=== PATIENT | female | born 1985 | race Caucasian/White ===

== ENCOUNTER 2017-10-06 15:57 | Emergency (ER) | payer MEDICAID ==
[~2017-10-06] VITALS: Ht 170.2 cm; Wt 59.9 kg
[2017-10-06 16:00] VITALS: BP_SYST 129
[2017-10-06] MEDS ORDERED: MORPHINE SULFATE 10 MG/ML VIAL IM ONE (19:00)
[2017-10-06] MEDS ORDERED: IBUPROFEN 800 MG TABLET PO ONE (19:00)
[2017-10-06 19:55] VITALS: BP_SYST 129
== END 2017-10-06 19:55 | disposition home or self-care (01) ==
LOC: SED 15:57
DX: S62.001A Unspecified fracture of navicular [scaphoid] bone of right wrist, initial encounter for closed fracture (principal); E11.9 Type 2 diabetes mellitus without complications; R03.0 Elevated blood-pressure reading, without diagnosis of hypertension; W01.198A Fall on same level from slipping, tripping and stumbling with subsequent striking against other object, initial encounter; Y93.89 Activity, other specified; Y92.89 Other specified places as the place of occurrence of the external cause; Y99.8 Other external cause status
CPT/HCPCS: 29125; 73090; 73110; 73140; 81025; 96372; 99284; J2270

== ENCOUNTER 2018-03-07 16:10 | Inpatient (IN) | payer MEDICAID, OTHER ==
[~2018-03-07] VITALS: Ht 170.2 cm; Wt 61.7 kg
[2018-03-07 16:10] VITALS: BP_SYST 157
[2018-03-07] MEDS ORDERED: NACL 0.9% 1,000 ML IV ONE (16:31)
[2018-03-07 17:00] LABS: BASOPHILS % (AUTO) 0.6 % (0.0-2.0); EOSINOPHILS # (AUTO) 0.1 K/uL (0.0-0.4); HEMATOCRIT 38.8 % (36-48); HEMOGLOBIN 13.2 g/dL (12.0-16.0); LYMPHOCYTES # (AUTO) 1.5 K/uL (1.0-5.5); LYMPHOCYTES % (AUTO) 37.4 % (20.5-51.5); MEAN CORPUSCULAR HEMOGLOBIN 34 pg (27-31); MEAN CORPUSCULAR HGB CONC 34 % (32-36); MEAN CORPUSCULAR VOLUME 101 fL (79.0-98.0); MONOCYTES # (AUTO) 0.4 K/uL (0.0-1.0); MONOCYTES % (AUTO) 8.9 % (1.7-9.3); NEUTROPHILS % (AUTO) 50.1 % (40.0-70.0); PLATELET COUNT (AUTO) 271 K/uL (130-430); RED BLOOD CELL COUNT(AUTO) 3.83 MIL/uL (4.2-6.2); RED CELL DISTRIBUTION WIDTH 16.1 % (9.0-15.0)
[2018-03-07] MEDS ORDERED: LORazepam 2 MG/ML VIAL (FOR ER USE) IVP ONE (17:00)
[2018-03-07 17:08] LABS: ACETONE, SERUM NEGATIVE (NEGATIVE)
[2018-03-07 17:09] LABS: ANION GAP 14 (5-15); CALCIUM 8.6 mg/dL (8.4-11.0); CHLORIDE 99 mmol/L (98-107); CREATININE 0.71 mg/dL (0.55-1.30); GLUCOSE 124 mg/dL (70-99); POTASSIUM 3.1 mmol/L (3.5-5.1); SODIUM SERUM 141 mmol/L (136-145); UREA NITROGEN, BLOOD 6 mg/dL (8-21)
[2018-03-07 17:23] LABS: ALANINE AMINOTRANSFERASE 27 U/L (12-78); ALBUMIN 3.8 g/dL (3.4-4.8); ALCOHOL, BLOOD 262 mg/dL (<10); ASPARTATE AMINOTRANSFERASE 77 U/L (10-37); TOTAL BILIRUBIN 0.7 mg/dL (0.0-1.0)
[2018-03-07 17:24] LABS: ACETAMINOPHEN < 1 ug/mL (1-30)
[2018-03-07] MEDS ORDERED: POTASSIUM CHLORIDE 10 MEQ TAB.PRT.SR PO ONE (18:00)
[2018-03-07 18:16] LABS: BARBITURATE, URINE NEGATIVE (NEG <=200); BENZODIAZEPINE, URINE NEGATIVE (NEG <=150); METHAMPHETAMINES SCREEN,URINE NEGATIVE (NEG <=500); URINE AMPHETAMINE NEGATIVE (NEG <=500); URINE METHADONE NEGATIVE (NEG <=200)
[2018-03-07 18:17] LABS: CANNABINOID, URINE POSITIVE (NEG <=50); COCAINE, URINE NEGATIVE (NEG <=150); OPIATE, URINE NEGATIVE (NEG <=100); PHENCYCLIDINE SCREEN,URINE NEGATIVE (NEG <=25); UR TRICYCLIC ANTIDEPRESSANTS NEGATIVE (NEG <=300); URINE OXYCODONE SCREEN NEGATIVE (NEG <=100); URINE PROPOXYPHENE SCREEN NEGATIVE (NEG <=300)
[2018-03-07] MEDS ORDERED: FOLIC ACID 1 MG, THIAMINE HCL 100 MG, MAGNESIUM SULFATE 1 GM, MVI 10 ML in NACL 0.9% 1,... IV SCH (19:45)
[2018-03-07] MEDS ORDERED: THIAMINE HCL 100 MG in NS 50 ML IV ONE (20:00)
[2018-03-07 20:27] VITALS: BP_SYST 113
[2018-03-07] MEDS: POTASSIUM CHLORIDE 20 MEQ TAB.PRT.SR PO SCH (21:09)
[2018-03-07] MEDS: FAMOTIDINE 20 MG TABLET PO SCH (21:09)
[2018-03-07] MEDS: chlordiazePOXIDE HCL 25 MG CAPSULE PO SCH (21:09)
[2018-03-07] MEDS: LORazepam 2 MG/ML VIAL IVP PRN (22:45)
[2018-03-07] MEDS ORDERED: FOLIC ACID 1 MG, THIAMINE HCL 100 MG, MAGNESIUM SULFATE 1 GM, MVI 10 ML in NACL 0.9% 1,... IV ONE (23:00)
[2018-03-07] MEDS ORDERED: THIAMINE HCL 100 MG/ML VIAL ONE (23:23)
[2018-03-07] MEDS ORDERED: MVI 10 ML VIAL IV ONE (23:23)
[2018-03-07] MEDS ORDERED: FOLIC ACID 5 MG/ML VIAL IV ONE (23:23)
[2018-03-07] MEDS ORDERED: MAGNESIUM SULFATE 1 GM/2 ML VIAL ONE (23:23)
[2018-03-08 00:22] VITALS: BP_SYST 123
[2018-03-08] MEDS: LORazepam 2 MG/ML VIAL IVP PRN ×5 (04:10→22:03)
[2018-03-08 07:24] LABS: BASOPHILS % (AUTO) 0.2 % (0.0-2.0); EOSINOPHILS # (AUTO) 0.1 K/uL (0.0-0.4); EOSINOPHILS % (AUTO) 2.5 % (0.0-4.0); HEMATOCRIT 33.5 % (36-48); HEMOGLOBIN 11.3 g/dL (12.0-16.0); LYMPHOCYTES # (AUTO) 1.1 K/uL (1.0-5.5); LYMPHOCYTES % (AUTO) 19.3 % (20.5-51.5); MEAN CORPUSCULAR HEMOGLOBIN 35 pg (27-31); MEAN CORPUSCULAR HGB CONC 34 % (32-36); MEAN CORPUSCULAR VOLUME 103 fL (79.0-98.0); MONOCYTES # (AUTO) 0.3 K/uL (0.0-1.0); MONOCYTES % (AUTO) 6.3 % (1.7-9.3); NEUTROPHILS % (AUTO) 71.7 % (40.0-70.0); PLATELET COUNT (AUTO) 191 K/uL (130-430); RED BLOOD CELL COUNT(AUTO) 3.24 MIL/uL (4.2-6.2); RED CELL DISTRIBUTION WIDTH 16.3 % (9.0-15.0); WHITE BLOOD COUNT (AUTO) 5.5 K/uL (4.8-10.8)
[2018-03-08 07:55] LABS: ALBUMIN 2.8 g/dL (3.4-4.8); CALCIUM 7.7 mg/dL (8.4-11.0); CREATININE 0.54 mg/dL (0.55-1.30); TOTAL BILIRUBIN 1.1 mg/dL (0.0-1.0)
[2018-03-08 08:39] LABS: INR 1.1 (0.8-1.2); PROTHROMBIN TIME 11.2 SECS (9.5-12.5)
[2018-03-08 09:22] VITALS: BP_SYST 120
[2018-03-08] MEDS: chlordiazePOXIDE HCL 25 MG CAPSULE PO SCH ×3 (09:24→20:51)
[2018-03-08] MEDS: FAMOTIDINE 20 MG TABLET PO SCH ×2 (09:24→20:51)
[2018-03-08] MEDS: POTASSIUM CHLORIDE 20 MEQ TAB.PRT.SR PO SCH ×2 (09:25→20:50)
[2018-03-08] MEDS: FOLIC ACID 1 MG TABLET PO SCH (09:25)
[2018-03-08] MEDS: THIAMINE HCL 100 MG TABLET PO SCH (09:25)
[2018-03-08] MEDS ORDERED: POTASSIUM CHLORIDE 20 MEQ TAB.PRT.SR PO ONE (10:30)
[2018-03-08 12:47] VITALS: BP_SYST 124
[2018-03-08] MEDS ORDERED: NICOTINE 21 MG/24 HR PATCH.TD24 TD ONE (13:30)
[2018-03-08 16:45] VITALS: BP_SYST 119
[2018-03-08 19:45] VITALS: BP_SYST 131
[2018-03-09 00:10] VITALS: BP_SYST 132
[2018-03-09 07:03] LABS: BASOPHILS % (AUTO) 0.3 % (0.0-2.0); EOSINOPHILS # (AUTO) 0.2 K/uL (0.0-0.4); EOSINOPHILS % (AUTO) 5.6 % (0.0-4.0); HEMATOCRIT 35.8 % (36-48); HEMOGLOBIN 12.2 g/dL (12.0-16.0); LYMPHOCYTES # (AUTO) 0.7 K/uL (1.0-5.5); LYMPHOCYTES % (AUTO) 20.8 % (20.5-51.5); MEAN CORPUSCULAR HEMOGLOBIN 35 pg (27-31); MEAN CORPUSCULAR HGB CONC 34 % (32-36); MEAN CORPUSCULAR VOLUME 103 fL (79.0-98.0); MONOCYTES # (AUTO) 0.2 K/uL (0.0-1.0); MONOCYTES % (AUTO) 6.6 % (1.7-9.3); NEUTROPHILS # (AUTO) 2.4 K/uL (1.8-7.7); NEUTROPHILS % (AUTO) 66.7 % (40.0-70.0); PLATELET COUNT (AUTO) 181 K/uL (130-430); RED BLOOD CELL COUNT(AUTO) 3.47 MIL/uL (4.2-6.2); RED CELL DISTRIBUTION WIDTH 15.9 % (9.0-15.0); WHITE BLOOD COUNT (AUTO) 3.5 K/uL (4.8-10.8)
[2018-03-09 08:00] VITALS: BP_SYST 136
[2018-03-09 08:11] LABS: ALBUMIN 3.2 g/dL (3.4-4.8); CALCIUM 8.4 mg/dL (8.4-11.0); CREATININE 0.55 mg/dL (0.55-1.30); POTASSIUM 3.2 mmol/L (3.5-5.1); TOTAL BILIRUBIN 1.1 mg/dL (0.0-1.0)
[2018-03-09] MEDS: FOLIC ACID 1 MG TABLET PO SCH (08:49)
[2018-03-09] MEDS: THIAMINE HCL 100 MG TABLET PO SCH (08:49)
[2018-03-09] MEDS: chlordiazePOXIDE HCL 25 MG CAPSULE PO SCH (08:49)
[2018-03-09] MEDS: FAMOTIDINE 20 MG TABLET PO SCH (08:49)
[2018-03-09] MEDS: POTASSIUM CHLORIDE 20 MEQ TAB.PRT.SR PO SCH (08:49)
[2018-03-09] MEDS ORDERED: NICOTINE 21 MG/24 HR PATCH.TD24 TD SCH (09:00)
[2018-03-09] MEDS: LORazepam 2 MG/ML VIAL IVP PRN ×2 (09:00→13:33)
[2018-03-09 12:18] VITALS: BP_SYST 121
[2018-03-09] MEDS ORDERED: POTASSIUM CHLORIDE 20 MEQ TAB.PRT.SR PO ONE (12:30)
[2018-03-09] MEDS ORDERED: CITALOPRAM HYDROBROMIDE 20 MG TABLET PO ONE (12:45)
[2018-03-09] MEDS ORDERED: ESCITALOPRAM OXALATE 10 MG TABLET PO SCH (13:00)
[2018-03-09] MEDS ORDERED: ESCI10TA PO (13:26)
[2018-03-09] MEDS ORDERED: QUET50TA PO (13:26)
[2018-03-09] MEDS ORDERED: POTA10TA11 PO (13:27)
[2018-03-09] MEDS ORDERED: THIA100T13 PO (13:28)
[2018-03-09] MEDS ORDERED: FOLI-43 PO (13:28)
[2018-03-09] MEDS ORDERED: FAMO20TA8 PO (13:29)
[2018-03-09 13:58] VITALS: BP_SYST 128
[2018-03-09] MEDS ORDERED: QUEtiapine FUMARATE 25 MG TABLET PO SCH ×2 (21:00)
[2018-03-10] MEDS ORDERED: CITALOPRAM HYDROBROMIDE 20 MG TABLET PO SCH (09:00)
== END 2018-03-09 14:20 | disposition home or self-care (01) | DRG 392 ==
LOC: SED 16:10 → STU 19:19 → EEVIPCON 19:19 → STU 19:57
PROVIDERS: ADMIT Internal Medicine; ATTEND Internal Medicine
DX: K29.20 Alcoholic gastritis without bleeding (principal); F33.2 Major depressive disorder, recurrent severe without psychotic features; F10.129 Alcohol abuse with intoxication, unspecified; F41.9 Anxiety disorder, unspecified; E87.6 Hypokalemia; F17.210 Nicotine dependence, cigarettes, uncomplicated; F43.10 Post-traumatic stress disorder, unspecified; F12.929 Cannabis use, unspecified with intoxication, unspecified; Z88.0 Allergy status to penicillin
CPT/HCPCS: 36415; 36600; 80053; 80307; 82009-TC; 82803-TC; 82962; 83735-TC; 85025; 85610-TC; 90656; 93005; 96361; 96374; 99285; G0378; G0480; G0481; G0482; J2060; J3411; J3475; J3490; J7030

== ENCOUNTER 2018-03-18 17:20 | Emergency (ER) | payer OTHER ==
[~2018-03-18] VITALS: Ht 170.2 cm; Wt 61.2 kg
[2018-03-18 17:20] VITALS: BP_SYST 151
[~2018-03-18 17:20] MED LIST: ESCI10TA PO; FAMO20TA8 PO; FOLI-43 PO; POTA10TA11 PO; QUET50TA PO; THIA100T13 PO
--- NOTE | 2018-03-18 17:20 | NUR ---
BROUGHT BACK TO BED #8 AND TRIAGED. REPORT GIVEN TO DAVIDSON
--- NOTE | 2018-03-18 17:25 | NUR ---
Pt presents to ER for alcohol intoxication. Pt reports she is "hydrated" and had her last drink a couple hours ago. Pt also reports loss of appetite due to stress of her passing away last year. Pt was here for alcohol intoxation on 03/07/18. She admits to marijuana use. Otherwise, pt denies nausea, vomiting, or any other complaints.
--- NOTE | 2018-03-18 17:30 | NUR ---
VIRGINIE Yang at bedside examining patient.
[2018-03-18] MEDS ORDERED: FOLIC ACID 5 MG/ML VIAL IV ONE (17:45)
[2018-03-18] MEDS ORDERED: THIAMINE HCL 100 MG/ML VIAL IM ONE (17:45)
[2018-03-18] MEDS ORDERED: NACL 0.9% 1,000 ML IV ONE (17:45)
[2018-03-18] MEDS ORDERED: ONDANSETRON HCL 4 MG/2 ML VIAL IVP ONE (17:45)
--- NOTE | 2018-03-18 17:50 | NUR ---
# 18 gauge angiocath placed to RAC. Use of asceptic technique. Opsite placed over site. Blood return noted. Blood for lab drawn from site. Flushed with 10 cc of normal saline. No evidence of infiltration noted. Patient tolerated well.
[2018-03-18 18:05] LABS: BASOPHILS % (AUTO) 0.7 % (0.0-2.0); EOSINOPHILS # (AUTO) 0.1 K/uL (0.0-0.4); EOSINOPHILS % (AUTO) 1.2 % (0.0-4.0); HEMATOCRIT 39.4 % (36-48); HEMOGLOBIN 12.8 g/dL (12.0-16.0); LYMPHOCYTES # (AUTO) 1.3 K/uL (1.0-5.5); LYMPHOCYTES % (AUTO) 21.6 % (20.5-51.5); MEAN CORPUSCULAR HEMOGLOBIN 33 pg (27-31); MEAN CORPUSCULAR HGB CONC 33 % (32-36); MEAN CORPUSCULAR VOLUME 102 fL (79.0-98.0); MONOCYTES # (AUTO) 0.5 K/uL (0.0-1.0); MONOCYTES % (AUTO) 8.6 % (1.7-9.3); NEUTROPHILS # (AUTO) 4.2 K/uL (1.8-7.7); NEUTROPHILS % (AUTO) 67.9 % (40.0-70.0); PLATELET COUNT (AUTO) 393 K/uL (130-430); RED BLOOD CELL COUNT(AUTO) 3.87 MIL/uL (4.2-6.2); RED CELL DISTRIBUTION WIDTH 15.6 % (9.0-15.0); WHITE BLOOD COUNT (AUTO) 6.2 K/uL (4.8-10.8)
[2018-03-18 18:12] LABS: CALCIUM 8.8 mg/dL (8.4-11.0); CREATININE 0.62 mg/dL (0.55-1.30); POTASSIUM 3.3 mmol/L (3.5-5.1)
[2018-03-18 20:00] VITALS: BP_SYST 131
--- NOTE | 2018-03-18 20:00 | NUR ---
Patient given written and verbal discharge instructions and verbalizes understanding. ER MD discussed with patient the results and treatment provided. Patient in stable condition. ID arm band removed. IV catheter removed intact and dressing applied, no active bleeding. Pain Scale 0/10. Opportunity for questions provided and answered. Medication side effect fact sheet provided.
== END 2018-03-18 20:00 | disposition home or self-care (01) ==
LOC: SED 17:20
DX: F10.129 Alcohol abuse with intoxication, unspecified (principal); E87.6 Hypokalemia; E86.0 Dehydration; R03.0 Elevated blood-pressure reading, without diagnosis of hypertension; Z88.0 Allergy status to penicillin; Z79.899 Other long term (current) drug therapy
CPT/HCPCS: 36415; 80048; 85025; 96361; 96372; 96374; 96375; 99283; J2405; J3411; J3490; J7030